=== PATIENT | male | born 1955 | race Two or more races ===

== ENCOUNTER → 2016-12-20 | Outpatient (CLI) | payer OTHER | LOC: BRMIMAGING 15:07 → EDSTATUS 15:08 | PROVIDERS: ATTEND Internal Medicine | DX: M79.645 Pain in left finger(s) (principal) | CPT/HCPCS: 73140-PO ==

== ENCOUNTER → 2017-01-08 | Outpatient (CLI) | payer OTHER | LOC: BRMIMAGING 14:04 | PROVIDERS: ATTEND Internal Medicine | DX: M79.645 Pain in left finger(s) (principal) | CPT/HCPCS: 73140-PO ==

== ENCOUNTER → 2018-01-28 | Outpatient (CLI) | payer OTHER | LOC: BRMIMAGING 11:28 | PROVIDERS: ATTEND Physician Assistant | DX: M53.3 Sacrococcygeal disorders, not elsewhere classified (principal) | CPT/HCPCS: 72220-PO ==